=== PATIENT | male | born 1965 | race Caucasian/White ===

== ENCOUNTER 2018-04-04 19:45 | Emergency (ER) | payer OTHER ==
[~2018-04-04] VITALS: Ht 193 cm; Wt 110.7 kg
[~2018-04-04 19:45] MED LIST: ALLOPURINOL 30300 M2 PO; ASPIR 8181 MG PO; CARISOPRODOL 3350 MG PO; DEPO-TESTO100 MG/1 M IM; HYDROCODON-ACE1 EAC5 PO; LISINOPRIL10 MG PO; METHIMAZOLE10 MG PO; MOBIC15 MG; MOBIC15 MG PO
[2018-04-04] MEDS ORDERED: MEDROLDOSEPACK PO (21:05)
[2018-04-04 21:33] VITALS: BP 149/87
== END 2018-04-04 21:33 | disposition home or self-care (01) ==
LOC: M.ERS 19:45
DX: M54.2 Cervicalgia (principal); I10 Essential (primary) hypertension; M10.9 Gout, unspecified; E89.0 Postprocedural hypothyroidism; Z88.2 Allergy status to sulfonamides

== ENCOUNTER → 2018-09-22 | Outpatient (CLI) | payer OTHER ==
[~2018-09-22] MED LIST changes: +MEDROLDOSEPACK PO
== END ==
LOC: M.RAD 10:27
DX: M25.462 Effusion, left knee (principal); G89.29 Other chronic pain; Z88.2 Allergy status to sulfonamides